=== PATIENT | male | born 1985 | race Caucasian/White ===

== ENCOUNTER 2017-01-16 13:36 | Emergency (ER) | payer OTHER ==
[2017-01-16 13:43] VITALS: TEMP 97
[2017-01-16] MEDS ORDERED: methylPREDNISolone SOD SUCCI 125 MG/2 ML VIAL IV STA (14:04)
[2017-01-16] MEDS ORDERED: SODIUM CHLORIDE 0.9% 1,000 ML IV STA (14:04)
[2017-01-16] MEDS ORDERED: SODIUM CHLORIDE 0.9% 500 ML IV STA (14:04)
[2017-01-16] MEDS ORDERED: FAMOTIDINE 20 MG/2 ML VIAL IV STA (14:04)
--- NOTE | 2017-01-16 14:11 | ED ---
General Adult HPI - General Chief complaint: Syncope Stated complaint: syncope; bee sting Time Seen by Provider: 01/16/17 13:55 Source: patient, family, RN notes reviewed Mode of arrival: wheelchair Limitations: no limitations - History of Present Illness Initial comments: Chief complaint and history of present illness a 31-year-old male with family. Patient was reportedly stung by a bee on his left wrist. Shortly after after he became diaphoretic and passed out. No seizure activity noted. When he did come to he was alert he was given 50 mg of Benadryl. And came here. Patient reports she's passed out approximate 5 times in the past usually associated with a dehydration and some anxiety associated with that. He sounds as though he had vasovagal syncope's. He's never had ALLERGIC reactions to bee stings in the past. States he feels back to normal now - Related Data Home Medications Medication Instructions Recorded Confirmed diphenhydrAMINE [Benadryl] 50 mg PO DAILY PRN 01/16/17 01/16/17 Allergies Allergy/AdvReac Type Severity Reaction Status Date / Time No Known Allergies Allergy Verified 01/16/17 14:16 Review of Systems ROS Statement: Those systems with pertinent positive or pertinent negative responses have been documented in the HPI. Review of systems no headache or visual acuity changes no chest pain or shortness of breath no palpitations no abdominal pain no nausea no vomiting discomfort with a bee bite site left wrist. He put some home medications on it ice pack was applied here. Stinger not noted in the wound. No neuro deficits. Alert and oriented. All systems are reviewed. Past medical problems significant for dehydration with syncopal episodes, asthma. Last time was over 25 years ago he had an asthma attack. Denies any surgeries. Family history grandfather skin cancer. Patient denies ALLERGIES nonsmoker. Drink alcohol rarely socially. ROS Other: All systems not noted in ROS Statement are negative. Past Medical History Past Medical History: Asthma Additional Past Medical History / Comment(s): syncope from dehydration History of Any Multi-Drug Resistant Organisms: None Reported Past Surgical History: No Surgical Hx Reported Past Psychological History: No Psychological Hx Reported Smoking Status: Never smoker Past Alcohol Use History: Occasional Past Drug Use History: None Reported General Exam - General Exam Comments Initial Comments: General: The patient is awake and alert, in no distress, and does not appear acutely ill. Here because of a syncopal episode after a bee bite. Probably vasovagal vagal associated with the pain and anxiety of the bee sting. No previous history of ALLERGIES. Vital signs show temperature 97.0 pulse 59 respiratory rate 16 pulse ox 100% room air blood pressure 131/85 Eye: Pupils are equal, round and reactive to light, extra-ocular movements are intact ; there is normal conjunctiva bilaterally. No signs of icterus. Ears, nose, mouth and throat: There are moist mucous membranes and no oral lesions. Neck: The neck is supple, there is no tenderness , no stridor, thyroid not enlarged. No anterior cervical lymphadenopathy. Cardiovascular: There is a regular rate and rhythm. No murmur, rub or gallop is appreciated. Respiratory: Lungs are clear to auscultation, respirations are non-labored, breath sounds are equal. No wheezes, stridor, rales, or rhonchi. Gastrointestinal: Soft, non-distended, non-tender abdomen without masses or organomegaly noted. There is no rebound or guarding present. No CVA tenderness. Bowel sounds are unremarkable. Back: There is no tenderness to palpation in the midline. There is no obvious deformity. No rashes noted. Musculoskeletal: Normal ROM, no tenderness, There is no pedal edema. There is no calf tenderness or swelling. Sensation intact. Pulses equal bilaterally 2+. Reddened area left wrist where he was stung by B. Ice pack applied. Neurological: CN II-XII intact, There are no obvious motor or sensory deficits. Coordination appears grossly intact. Speech is normal. No focal or lateralizing findings. Skin: Skin is warm and dry and no rashes or lesions are noted. Limitations: no limitations Course Vital Signs 01/16/17 01/16/17 13:39 15:02 Temperature 97.0 F L Pulse Rate 59 L 61 Respiratory 16 17 Rate Blood Pressure 131/85 128/78 O2 Sat by Pulse 100 100 Oximetry EKG Findings - EKG Comments: EKG Findings:: EKG was done and reviewed at 1515 showing sinus bradycardia rate [address] elevation no ectopy. MI interval is 128 QRS 88 QT [address] Smith Medical Decision Making - Medical Decision Making Medical decision making; the patient's labs show white count 3.3 hemoglobin 14.9 hematocrit 42.9. Potassium 4.0 with a BUN 16 creatinine 0.9 and GFR greater than 60 and glucose 90. Patient's been feeling fine since arrival to emergency room. 11 IV he was hydrated. Discussed vasovagal syncope. He'll be advised to take Benadryl and Pepcid and prednisone for the next 2 days. - Lab Data Result diagrams: 01/16/17 14:25 01/16/17 14:25 Lab Results 01/16/17 01/16/17 Range/Units 14:25 14:25 WBC 3.3 L (3.8-10.6) k/uL RBC 4.79 (4.30-5.90) m/uL Hgb 14.9 (13.0-17.5) gm/dL Hct 42.9 (39.0-53.0) % MCV 89.6 (80.0-100.0) fL MCH 31.1 (25.0-35.0) pg MCHC 34.7 (31.0-37.0) g/dL RDW 14.2 (11.5-15.5) % Plt Count 230 (150-450) k/uL Neutrophils % 66 % Lymphocytes % 22 % Monocytes % 7 % Eosinophils % 3 % Basophils % 1 % Neutrophils # 2.2 (1.3-7.7) k/uL Lymphocytes # 0.7 L (1.0-4.8) k/uL Monocytes # 0.2 (0-1.0) k/uL Eosinophils # 0.1 (0-0.7) k/uL Basophils # 0.0 (0-0.2) k/uL Sodium 137 (137-145) mmol/L Potassium 4.0 (3.5-5.1) mmol/L Chloride 101 (98-107) mmol/L Carbon Dioxide 26 (22-30) mmol/L Anion Gap 10 mmol/L BUN 16 (9-20) mg/dL Creatinine 0.90 (0.66-1.25) mg/dL Est GFR (MDRD) Af Amer >60 (>60 ml/min/1.73 sqM) Est GFR (MDRD) Non-Af >60 (>60 ml/min/1.73 sqM) Glucose 90 (74-99) mg/dL Calcium 9.4 (8.4-10.2) mg/dL Total Bilirubin 0.7 (0.2-1.3) mg/dL AST 31 (17-59) U/L ALT 31 (21-72) U/L Alkaline Phosphatase 54 (38-126) U/L Total Protein 7.0 (6.3-8.2) g/dL Albumin 4.3 (3.5-5.0) g/dL Disposition Clinical Impression: Vasovagal syncope, Hymenoptera sting Disposition: HOME SELF-CARE Condition: Good Instructions: Syncope (ED), Hypotension (ED) Additional Instructions: Take [id number] Benadryl 25 mg 3 times daily for the next 2 days as well as Pepcid 20 mg daily for the next 2 or 3 days. Report any changes to family doctor return emergency room as needed. Referrals: Nonstaff,Physician [Primary Care Provider] - 1-2 days Time of Disposition: 15:20
[2017-01-16 14:43] LABS: Basophils % (A) 1 %; CH 31.5; CHCM 35.4; Eosinophils # (A) 0.1 k/uL (0-0.7); Eosinophils % (A) 3 %; HCT 42.9 % (39.0-53.0); HDW 2.61; HGB 14.9 gm/dL (13.0-17.5); Luc # (Auto) 0.06; Luc % (Auto) 2; Lymphocytes # (A) 0.7 k/uL (1.0-4.8); Lymphocytes % (A) 22 %; MCH 31.1 pg (25.0-35.0); MCHC 34.7 g/dL (31.0-37.0); MCV 89.6 fL (80.0-100.0); Mean Platelet Volume 6.8; Monocytes # (A) 0.2 k/uL (0-1.0); Monocytes % (A) 7 %; Neutrophils # (A) 2.2 k/uL (1.3-7.7); Neutrophils % (A) 66 %; RBC 4.79 m/uL (4.30-5.90); RDW 14.2 % (11.5-15.5); WBC 3.3 k/uL (3.8-10.6); WBC (Perox) 3.05
[2017-01-16 15:07] LABS: ALT 31 U/L (21-72); AST 31 U/L (17-59); Alkaline Phosphatase 54 U/L (38-126); Anion Gap 10 mmol/L; Blood Urea Nitrogen 16 mg/dL (9-20); Calcium 9.4 mg/dL (8.4-10.2); Carbon Dioxide 26 mmol/L (22-30); Chloride 101 mmol/L (98-107); Glucose 90 mg/dL (74-99); Non-African American GFR(MDRD) >60 (>60 ml/min/1.73 sqM); Sodium 137 mmol/L (137-145); Total Bilirubin 0.7 mg/dL (0.2-1.3)
[2017-01-16 15:38] VITALS: BP 128/78; PULSE 61; RESP 17
== END 2017-01-16 15:32 | disposition home or self-care (01) ==
LOC: EC 13:36
DX: T63.441A Toxic effect of venom of bees, accidental (unintentional), initial encounter (principal); R55 Syncope and collapse
CPT/HCPCS: 36415; 93005; 80053; 85025; 99284; 96374; 96375; 96361; J2930